=== PATIENT | female | born 1945 | race Caucasian/White ===

== ENCOUNTER → 2018-09-17 | Outpatient (CLI) | payer MEDICARE | END | disposition home or self-care (01) | LOC: LAB 14:21 | DX: Z01.818 Encounter for other preprocedural examination (principal); K74.60 Unspecified cirrhosis of liver; D01.5 Carcinoma in situ of liver, gallbladder and bile ducts; K75.81 Nonalcoholic steatohepatitis (NASH) | CPT/HCPCS: 71046 ==

== ENCOUNTER → 2019-02-24 | Outpatient (CLI) | payer MEDICARE, OTHER | END | disposition home or self-care (01) | LOC: RAD 11:00 | DX: Z01.818 Encounter for other preprocedural examination (principal) | CPT/HCPCS: 71046 ==